=== PATIENT | male | born 1965 | race Caucasian/White ===

== ENCOUNTER → 2018-03-02 08:16 | Outpatient (CLI) | payer OTHER, MEDICAID, SELFPAY ==
--- NOTE | 2018-03-02 | DI.RAD.S_ITS ---
PROCEDURE: XR LUMBAR SPINE 2-3V INDICATIONS: BACK PAIN TECHNIQUE: 2 views of the lumbar spine were acquired. COMPARISON: None. FINDINGS: Bones: 5 [id number] vertebrae are present. There is dextroconvex rotoscoliosis with slight retrolisthesis at L2-3 and L3-4. Multilevel degenerative disc disease with reactive bone marrow signal changes at L2-3 level and moderate anterior and lateral bony spurring. No vertebral body compression fractures. No suspicious bony lesions. Sclerosis over the L5-S1 facet joints. Soft tissues: Overlying bowel gas pattern is normal. No suspicious soft tissue calcifications. IMPRESSION: 1. Rotoscoliosis, multilevel disc degeneration and spondylosis. Dictated by: Berry Zabala M.D. on 03/02/2018 at 8:40 Approved by: Berry Zabala M.D. on 03/02/2018 at 8:43
== END ==
PROVIDERS: Family Provider Family Medicine; PCP Family Medicine; Visit Provider Chiropractor
DX: M51.36 Other intervertebral disc degeneration, lumbar region (principal); M47.816 Spondylosis without myelopathy or radiculopathy, lumbar region; M41.86 Other forms of scoliosis, lumbar region; M54.5 Low back pain
CPT/HCPCS: 72100

== ENCOUNTER → 2018-05-18 13:24 | Outpatient (CLI) | payer OTHER, MEDICAID, SELFPAY ==
[2018-05-18 15:07] LABS: Alanine Aminotransferase 44 IU/L (21-72); Albumin Globulin Ratio 1.6 (1.0-2.8); Alkaline Phosphatase 56 U/L (38-126); Aspartate Aminotransferase 35 IU/L (17-59); BUN Creatinine Ratio 24.3 (6-22); Blood Urea Nitrogen 17 mg/dL (9-20); Calcium 9.7 mg/dL (8.4-10.2); Carbon Dioxide 33 mmol/L (22-32); Chloride 101 mmol/L (98-107); Cholesterol 212 mg/dL (140-199); Estimated Glomerular Filt Rate > 60.0 mL/min (>60); Globulin 3.2 g/dL (1.7-4.1); Glucose 94 mg/dL (70-100); HDL Cholesterol 41 mg/dL (40-60); HEMOLYSIS 16 (0-50); LDL Cholesterol Calculated 138 mg/dL (<100); Potassium 4.4 mmol/L (3.4-5.1); Sodium 146 mmol/L (137-145); Total Protein 8.2 g/dL (6.3-8.2); Triglycerides 166 mg/dL (35-150)
== END ==
PROVIDERS: Family Provider Family Medicine; PCP Family Medicine; Visit Provider Registered Nurse
DX: I10 Essential (primary) hypertension (principal); E78.5 Hyperlipidemia, unspecified
CPT/HCPCS: 36415; 80053; 80061

== ENCOUNTER → 2018-06-13 09:18 | Outpatient (CLI) | payer OTHER, MEDICAID, SELFPAY ==
--- NOTE | 2018-06-13 09:30 | DI.ECHO.S_ITS ---
[facility]---------+ [facility] +---------+ : : [address] : : : : [id number] : : : : Phone: [phone]+ Echocardiogram Report + + :Name: ROGER MAHER Study Date: 06/13/2018 Height: 71 in : :[facility] Exam Location: IS Weight: 260 lb : : Gender: Male BSA: 2.4 m2 : :: 1965 Age: 52 yrs BP: 130/87 mmHg: :Reason For Study: HTN : : Performed By: Neto Azar : :Referring: ROSE BUSH : + + Interpretation Summary The left ventricle is normal in size. There is mild concentric left ventricular hypertrophy. The ejection fraction is estimated to be 60-65%. There are no focal wall motion abnormalities. Diastolic parameters suggest a relaxation abnormality of the left ventricle, consistent with probable normal filling pressures. Both atria are mildly dilated. The right ventricular systolic pressure is estimated to be at least 20 mmHg based on an estimated right atrial pressure of 3 mm Hg. No other echocardiographic abnormalities seen. Procedure: A two-dimensional transthoracic echocardiogram with color flow and Doppler was performed. The study quality was technically adequate. There is no prior echocardiogram noted for this patient. The patient was in normal sinus rhythm during the exam. Left Ventricle: The left ventricle is normal in size. There is mild concentric left ventricular hypertrophy. The ejection fraction is estimated to be 60-65%. There are no focal wall motion abnormalities. Diastolic parameters suggest a relaxation abnormality of the left ventricle, consistent with probable normal filling pressures. Right Ventricle: The right ventricle is normal in size, thickness and function. The right ventricular systolic function is normal. Atria: Both atria are mildly dilated. The interatrial septum is intact with no evidence for an atrial septal defect. Mitral Valve: The mitral valve is normal in structure and function. There is trace mitral regurgitation. Aortic Valve: The aortic valve is normal in structure and function. The aortic valve is trileaflet. The aortic valve opens well. No aortic regurgitation is present. Tricuspid Valve: The tricuspid valve is normal in structure and function. There is trace tricuspid regurgitation. The right ventricular systolic pressure is estimated to be at least 20 mmHg based on an estimated right atrial pressure of 3 mm Hg. Pulmonic Valve: The pulmonic valve is normal in structure and function. There is trace pulmonic regurgitation. Great Vessels: The aortic root is normal size. The ascending aorta is at the upper limits of normal in size. The pulmonary artery is normal size. The IVC is of normal diameter and collapses greater than 50% with a sniff. This suggests a low right atrial pressure of 3 mm Hg. Pericardium/ Pleura There is no pericardial effusion. There is no pleural effusion. MMode/2D Measurements & Calculations LVIDd: 5.2 cm Ao root diam: 3.7 cm LVIDs: 3.5 cm Aortic Jxn: 2.8 cm FS: 33.8 % asc Aorta Diam: 3.5 cm EPSS: 0.45 cm Ao Arch Diam (Prox Trans): 2.8 cm IVSd: 1.4 cm LVPWd: 1.1 cm LV robles. diameter/BSA (cm/m^2): 2.2 LV sys. diameter/BSA (cm/m^2): 1.5 LA dimension: 4.4 cm RA long axis: 5.4 cm LA A2 area: 26.8 cm2 RA area: 22.8 cm2 LA A4 area: 26.5 cm2 RA vol: 82.1 ml LA length (vol): 6.1 cm RA : 34.8 ml/m2 LA vol: 98.9 ml IVC diam: 1.6 cm LA vol index: 41.9 ml/m2 Doppler Measurements & Calculations Ao V2 max: 173.9 cm/sec LVOT Max Shahram: 91.4 cm/sec Ao V2 mean: 132.5 cm/sec LV V1 max P.3 mmHg Ao max P.1 mmHg LV V1 VTI: 16.1 cm Ao mean P.4 mmHg sev ratio: 0.52 Ao V2 VTI: 30.9 cm MV E max shahram: 49.6 cm/sec TR max shahram: 203.2 cm/sec MV A max shahram: 67.5 cm/sec TR max P.5 mmHg MV E/A: 0.74 PA V2 max: 79.3 cm/sec Med Peak E' Shahram: 5.5 cm/sec PA V2 mean: 54.9 cm/sec E/E' med: 9.1 PA mean P.3 mmHg MV dec time: 0.24 sec PA pr(Accel): 29.1 mmHg PA Accel Time: 0.11 sec Pulm A Revs Shahram: 29.0 cm/sec Reading Physician:04:06 PM
[2018-06-13 10:12] LABS: Alanine Aminotransferase 47 IU/L (21-72); Albumin 4.8 g/dL (3.5-5.0); Albumin Globulin Ratio 1.5 (1.0-2.8); Alkaline Phosphatase 55 U/L (38-126); Aspartate Aminotransferase 28 IU/L (17-59); BUN Creatinine Ratio 24.3 (6-22); Bilirubin Total 0.4 mg/dL (0.2-1.3); Blood Urea Nitrogen 17 mg/dL (9-20); Calcium 9.5 mg/dL (8.4-10.2); Carbon Dioxide 29 mmol/L (22-32); Chloride 99 mmol/L (98-107); Estimated Glomerular Filt Rate > 60.0 mL/min (>60); Globulin 3.1 g/dL (1.7-4.1); Glucose 126 mg/dL (70-100); HEMOLYSIS < 15 (0-50); Potassium 4.3 mmol/L (3.4-5.1); Sodium 142 mmol/L (137-145); Total Protein 7.9 g/dL (6.3-8.2)
== END ==
PROVIDERS: Family Provider Family Medicine; PCP Family Medicine; Visit Provider Registered Nurse
DX: I10 Essential (primary) hypertension (principal)
CPT/HCPCS: 36415; 80053; 93306

== ENCOUNTER 2024-03-03 07:57 | Emergency (ER) | payer OTHER, MEDICAID, SELFPAY ==
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
[2024-03-03 08:06] VITALS: BP 255/140; PULSE 109; RESP 19; TEMP 36.4; O2SAT 96; BMI 34.2
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
[2024-03-03] MEDS: LIDOCAINE 1% 20 ML INJ (08:28)
[2024-03-03] MEDS: TET,DIPH,PERTUSS(ACELL),VAC/PF 0.5 ML SYRINGE IM (08:28)
[2024-03-03] MEDS: BACITRACIN OINT 0.9 GM PCKT 1 APPLIC TOP (08:29)
[2024-03-03 09:45] VITALS: BP 245/127; RESP 17
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
== END 2024-03-03 10:01 | disposition home or self-care (01) ==
PROVIDERS: Emergency Provider Emergency Medicine; Family Provider Family Medicine; PCP Nurse Practitioner
DX: S61.215A Laceration without foreign body of left ring finger without damage to nail, initial encounter (principal); W32.0XXA Accidental handgun discharge, initial encounter; Z23 Encounter for immunization
CPT/HCPCS: 12001; 29130; 64450; 73130; 90471; 99284; 90715

== ENCOUNTER → 2024-03-13 09:45 | Outpatient (CLI) | payer OTHER, MEDICAID, SELFPAY ==
[2024-03-13 10:29] LABS: Add Manual Diff / Slide Review NO; Basophils Absolute Auto 0 /uL (0-100); Basophils Percent Auto 0.6 % (0-2); Eosinophils Absolute Auto 100 /uL (0-450); Eosinophils Percent Auto 1.2 % (2-4); Hematocrit 45.3 % (41-53); Hemoglobin 15.9 g/dL (13.5-17.5); Lymphocytes Absolute Auto 1900 /uL (1100-4500); Lymphocytes Percent Auto 28.3 % (25-40); Mean Corpuscular HGB Conc 35.2 % (30-36); Mean Corpuscular Hemoglobin 30.3 PG (26-34); Mean Corpuscular Volume 86.2 fL (80-100); Monocytes Absolute Auto 600 /uL (0-900); Monocytes Percent Auto 8.8 % (3-14); Neutrophils Absolute Auto 4100 /uL (1500-7000); Neutrophils Percent Auto 61.1 % (50-75); Platelet Count 194 X10^3/uL (150-400); Red Blood Cell Count 5.25 X10^6/uL (4.5-5.9); Red Cell Distribution Width 14.1 % (11.6-14.8); White Blood Cell Count 6.8 X10^3/uL (4.5-11.0)
[2024-03-13 10:47] LABS: Alanine Aminotransferase 46 IU/L (<50); Albumin 4.6 g/dL (3.5-5.0); Albumin Globulin Ratio 1.2 (1.0-2.8); Alkaline Phosphatase 55 U/L (38-126); Aspartate Aminotransferase 35 IU/L (17-59); BUN Creatinine Ratio 23.5 (6-22); Bilirubin Total 0.8 mg/dL (0.2-1.3); Blood Urea Nitrogen 19 mg/dL (9-20); Calcium 9.6 mg/dL (8.4-10.2); Carbon Dioxide 24 mmol/L (22-32); Chloride 106 mmol/L (98-107); Cholesterol 276 mg/dL (140-199); Estimated Glomerular Filt Rate > 60 mL/min (>60); Globulin 3.8 g/dL (1.7-4.1); Glucose 115 mg/dL (80-110); HDL Cholesterol 50 mg/dL (40-60); HEMOLYSIS < 15 (0-50); LDL Cholesterol Calculated 195 mg/dL (<100); Potassium 4.1 mmol/L (3.4-5.1); Sodium 140 mmol/L (137-145); Total Protein 8.4 g/dL (6.3-8.2); Triglycerides 156 mg/dL (35-150)
[2024-03-13 12:54] LABS: Hemoglobin A1C% w Est Avg Glu 5.3 % (4.0-6.0)
== END ==
LOC: LAB 09:46
PROVIDERS: Family Provider Family Medicine; PCP Family Medicine; Referring Provider Family Medicine; Visit Provider Family Medicine
DX: I10 Essential (primary) hypertension (principal); E78.5 Hyperlipidemia, unspecified; E66.9 Obesity, unspecified
CPT/HCPCS: 36415; 80053; 80061; 83036; 85025

== ENCOUNTER → 2024-05-01 11:25 | Outpatient (CLI) | payer OTHER, MEDICAID, SELFPAY ==
[2024-05-01 12:29] LABS: BUN Creatinine Ratio 21.1 (6-22); Blood Urea Nitrogen 20 mg/dL (9-20); Calcium 9.7 mg/dL (8.4-10.2); Carbon Dioxide 31 mmol/L (22-32); Chloride 100 mmol/L (98-107); Estimated Glomerular Filt Rate > 60 mL/min (>60); Glucose 113 mg/dL (80-110); HEMOLYSIS < 15 (0-50); Potassium 4.7 mmol/L (3.4-5.1); Sodium 139 mmol/L (137-145)
== END ==
LOC: LAB 11:25
PROVIDERS: Family Provider Family Medicine; PCP Family Medicine; Referring Provider Family Medicine; Visit Provider Family Medicine
DX: I10 Essential (primary) hypertension (principal); E78.5 Hyperlipidemia, unspecified
CPT/HCPCS: 36415; 80048

== ENCOUNTER → 2024-08-17 11:29 | Outpatient (CLI) | payer OTHER, SELFPAY ==
--- NOTE | 2024-08-17 11:31 | DI.RAD.S_ITS ---
PROCEDURE: XR SHOULDER LT MIN 2V INDICATIONS: chronic left shoulder pain/decreased ROM TECHNIQUE: 3 views of the shoulder were acquired. COMPARISON: None. FINDINGS: Bones: No fractures or dislocations. No suspicious bony lesions. Visualized ribs appear intact. Glenohumeral and acromioclavicular joint space narrowing with associated osteophytosis. Bony remodeling of the glenohumeral joint space. Soft tissues: No suspicious soft tissue calcifications. Suspected dystrophic calcifications versus joint loose bodies. IMPRESSION: Severe glenohumeral osteoarthritis. Suspected dystrophic calcifications versus 1.5 cm joint loose bodies. Dictated by: Jj Ovalle M.D. on 08/17/2024 at 14:31 Approved by: Jj Ovalle M.D. on 08/17/2024 at 14:32
--- NOTE | 2024-08-17 11:31 | DI.ECHO.S_ITS ---
[facility]---------+ [facility] : : [address] : : [address] [address] : : [id number] : : Phone: [phone] Echocardiogram Report + + :Name: ROGER MAHER Study Date: 08/17/2024 Height: 71 in : :[facility] ReadingLocation: Weight: 255 lb : : Gender: Male BSA: 2.3 m2 : :: 1965 Age: 59 yrs BP: 193/113 mmHg: :Reason For Study: HYPERTENSION : :Ordering Physician: DIPTI, : :TANMAY Performed By: Bry Rangel : :Referring: TANMAY RESENDEZ : + + Interpretation Summary The left ventricle is normal in size. Left ventricular systolic function appears normal without focal wall motion abnormalities. The ejection fraction is estimated to be 60-65%. Diastolic parameters suggest a relaxation abnormality of the left ventricle, consistent with probable normal filling pressures. The right ventricle is borderline dilated. The right ventricular systolic function is normal. Pulmonary artery pressures cannot be estimated because of the lack of a measurable TR jet velocity but the IVC suggests a CVP of around 3 mmHg. The left atrial size is normal. There is no Doppler evidence for an interatrial shunt. The thickening of interatrial septum suggests lipomatous hypertrophy. There is no significant valvular heart disease. The aortic root is mildly dilated. Procedure: A two-dimensional transthoracic echocardiogram with color flow and Doppler was performed. The study quality was technically good. Comparison is made with the echocardiogram of 06/13/2018. The patient was in normal sinus rhythm during the exam. Left Ventricle: The left ventricle is normal in size. Left ventricular wall thickness is mildly increased. There is no ventricular septal defect visualized. Left ventricular systolic function appears normal without focal wall motion abnormalities. The ejection fraction is estimated to be 60-65%. Diastolic parameters suggest a relaxation abnormality of the left ventricle, consistent with probable normal filling pressures. Right Ventricle: The right ventricle is borderline dilated. The right ventricular systolic function is normal. Atria: The left atrial size is normal. Right atrial size is normal. There is no Doppler evidence for an interatrial shunt. The thickening of interatrial septum suggests lipomatous hypertrophy. Mitral Valve: The mitral valve leaflets appear normal. There is no evidence of stenosis, fluttering, or prolapse. There is no mitral regurgitation noted. Aortic Valve: The aortic valve is trileaflet. The aortic valve is mildly calcified. No aortic regurgitation is present. Tricuspid Valve: The tricuspid valve leaflets are thin and pliable. No tricuspid regurgitation. Pulmonary artery pressures cannot be estimated because of the lack of a measurable TR jet velocity but the IVC suggests a CVP of around 3 mmHg. Pulmonic Valve: The pulmonic valve leaflets are thin and pliable; valve motion is normal. There is no pulmonic valvular regurgitation. There is no significant valvular heart disease. Great Vessels: The aortic root is mildly dilated. The dimensions of the ascending aorta are normal. The pulmonary artery is normal size. The IVC is of normal diameter and collapses greater than 50% with a sniff. This suggests a low right atrial pressure of 3 mm Hg. Pericardium/ Pleura There is no pericardial effusion. There is no pleural effusion. MMode/2D Measurements & Calculations LVIDd: 5.1 cm LVOT diam: 2.0 cm LVIDs: 3.0 cm Ao root diam: 3.7 cm FS: 41.5 % asc Aorta Diam: 3.6 cm EPSS: 0.49 cm IVSd: 1.2 cm LVPWd: 1.2 cm LV robles. diameter/BSA (cm/m^2): 2.2 LV sys. diameter/BSA (cm/m^2): 1.3 LA A2 area: 17.7 cm2 RA long axis: 5.0 cm LA A4 area: 26.6 cm2 RA area: 13.8 cm2 LA length (vol): 6.5 cm RA vol: 32.7 ml LA vol: 61.8 ml RA : 14.0 ml/m2 LA vol index: 26.4 ml/m2 IVC diam: 1.4 cm RVD1 (basal): 4.1 cm RVD2 (mid): 3.7 cm TAPSE: 2.7 cm Doppler Measurements & Calculations Ao V2 max: 181.5 cm/sec LVOT Max Shahram: 103.8 cm/sec Ao V2 mean: 130.9 cm/sec LV V1 max P.3 mmHg Ao max P.2 mmHg LV V1 VTI: 21.1 cm Ao mean P.5 mmHg GABBIE(I,D): 2.1 cm2 Ao V2 VTI: 32.4 cm GABBIE(V,D): 1.9 cm2 sev ratio: 0.65 GABBIE indexed to BSA (cm^2/m^2): 0.91 MV E max shahram: 61.5 cm/sec PA V2 max: 88.5 cm/sec MV A max shahram: 88.4 cm/sec PA V2 mean: 65.6 cm/sec MV E/A: 0.70 PA mean P.8 mmHg Med Peak E' Shahram: 11.5 cm/sec PA pr(Accel): 44.7 mmHg E/E' med: 5.4 Lat Peak E' Shahram: 5.7 cm/sec E/E' lat: 10.9 E/e' average: 8.1 MV dec time: 0.10 sec SV(LVOT): 68.7 ml Reading Physician:05:41 PM
== END ==
PROVIDERS: Family Provider Family Medicine; PCP Family Medicine; Referring Provider Family Medicine; Visit Provider Family Medicine
DX: I10 Essential (primary) hypertension (principal); E78.5 Hyperlipidemia, unspecified; E66.9 Obesity, unspecified; Z68.38 Body mass index [BMI] 38.0-38.9, adult; G47.30 Sleep apnea, unspecified; M25.512 Pain in left shoulder; G89.29 Other chronic pain; M19.012 Primary osteoarthritis, left shoulder; I51.7 Cardiomegaly
CPT/HCPCS: 73030; 93306

== ENCOUNTER 2025-03-28 07:54 | Emergency (ER) | payer OTHER, SELFPAY ==
[2025-03-28] VITALS (51 sets, daily range): BP systolic 152–224; BP diastolic 83–163; PULSE 64–141; RESP 12–28; TEMP 36.5–37.2; O2SAT 92–99; BMI 33.5
--- NOTE | 2025-03-28 08:26 | ED.LOWEXIN ---
HPI - Extremity Injury (Lower) General Chief Complaint: Extremity Injury, Lower Stated Complaint: Right hamstring injury yesterday, pain Time Seen by Provider: 03/28/25 07:58 History of Present Illness HPI Narrative: PMHx significant for HTN, obeisty, hyperlipidemia, LINK Pt presents to the ER with severe R posterior thigh pain that started yesterday afternoon while lifting a heavy object onto a shelf. The patient reports feeling pain immediately after the action but was able to tolerate it initially. However, at around 3 AM, the pain intensified significantly, causing difficulty in straightening the leg. The pain is described as extending from the middle of the buttock down the leg, primarily localized to the back of the thigh. The patient denies any popping sensation during the incident but mentions the affected area feels rock hard. The patient denies any pain radiating to the toes, back pain, groin pain, chest pain, abdominal pain, nausea, vomiting, or pain during urination. He reports experiencing profuse sweating this morning, which he attributes to the severe pain. The patient has no history of chronic pain and does not take regular pain medication. Regarding past medical history, the patient mentions having high blood pressure about nine months ago. He was previously prescribed blood pressure medication but is not currently taking it. Instead, he has been using natural remedies like beetroot powder to manage his blood pressure. Has been off antihypertensives for at least 5 months now. The patient denies alcohol consumption but admits to occasional use of edibles. He reports an allergy to codeine, which makes him sick. Fentanyl was administered by EMS for pain relief but was ineffective. Related Data Previous Rx's ?Medication ?Instructions ?Recorded hydrochlorothiazide 50 mg tablet 50 mg PO DAILY #90 tabs 04/02/24 albuterol sulfate 90 mcg/actuation 2 puff inhalation Q6H PRN 12/31/24 aerosol inhaler shortness of breath #8.5 grams carvedilol 3.125 mg tablet (Coreg) 3.125 mg PO BID #60 tabs 03/28/25 cyclobenzaprine 10 mg tablet 10 mg PO TID PRN muscle spasm #15 03/28/25 tabs hydrocodone 5 mg-acetaminophen 300 1 tab PO BID PRN pain #10 tabs 03/28/25 mg tablet lisinopril 40 mg tablet 40 mg PO DAILY #30 tabs 03/28/25 Allergies Allergy/AdvReac Type Severity Reaction Status Date / Time aspirin (ASPIRIN) Allergy Unknown Verified 08/23/24 10:46 codeine (CODEINE) Allergy Unknown NAUSEA/KOMAL Verified 08/23/24 10:46 ISE atorvastatin AdvReac Mild didn't Verified 08/23/24 10:46 feel well Review of Systems Review of Systems Narrative: As noted above Patient History Medical History (Updated 03/28/25 @ 16:09 by Noe Pereira MD) Sleep apnea Obesity Hyperlipidemia Hypertension Surgical History History of surgery on arm Status post hernia repair Status post hernia repair History of knee replacement History of knee replacement (2006) tobacco type: smokeless tobacco alcohol intake frequency: a few times a month Exam Narrative Exam Narrative: VS as noted above Focused physical exam as follows: General: Well developed, well nourished, no acute distress, obese, pain with any movement of his RLE HEENT: pink palpebral conjunctiva, anicteric sclera, LILLIAM, moist mucous membranes, no JVD, no cervical lymphadenopathy Lungs: no respiratory distress, clear to auscultation without wheezes or crackles; equal breath sounds Heart: normal rate, regular rhythm, no appreciable murmurs Abdomen: soft, nontender, no rebound or rigidity; no palpable mass Musculoskeletal: no gross deformities, no pedal edema; RLE - no tenderness in the inguinal region, medial thigh, popliteal fossa, good dorsalis pedis pulse; rather hard and tender over the posterior thigh with excruciating pain with any movement; mild tenderness in the R gluteal region; no tenderness over the C, T or Lspine Skin: pink, warm; no rashes Neuro: ?AAOx3, GCS 15, nonfocal exam Psyche: no SI/HI, normal affect Initial Vital Signs Initial Vital Signs: Vital Signs Pulse Rate 75 03/28/25 07:59 Blood Pressure 180/97 H 03/28/25 07:59 Pulse Oximetry 98 03/28/25 07:59 Course Orders Ordered: Discontinued Medications Hydralazine HCl (Hydralazine 20 Mg/Ml Vial) 10 mg IV NOW ONE Stop: 03/28/25 10:42 Last Admin: 03/28/25 10:47 Dose: 10 mg Documented By: RB Hydromorphone HCl (Hydromorphone Hcl 0.5 Mg/0.5 Ml Syringe) 1 mg IV NOW ONE Stop: 03/28/25 08:34 Last Admin: 03/28/25 08:58 Dose: 1 mg Documented By: SHOLA Hydromorphone HCl (Hydromorphone Hcl 0.5 Mg/0.5 Ml Syringe) 0.5 mg IV NOW ONE Stop: 03/28/25 10:42 Last Admin: 03/28/25 10:46 Dose: 0.5 mg Documented By: SHOLA Vital Signs Vital signs: Vital Signs - 8 hr 03/28/25 08:00 03/28/25 08:02 03/28/25 08:02 Temperature Pulse Rate 74 68 Respiratory Rate Blood Pressure 180/92 H Pulse Oximetry 97 96 Oxygen Delivery Method 03/28/25 08:05 03/28/25 08:30 03/28/25 08:31 Temperature 97.7 F Pulse Rate 75 75 69 Respiratory Rate 16 Blood Pressure 180/97 H Pulse Oximetry 99 97 97 Oxygen Delivery Method Room Air 03/28/25 08:31 03/28/25 08:54 03/28/25 08:54 Temperature Pulse Rate 64 Respiratory Rate Blood Pressure 210/98 H 219/105 H Pulse Oximetry 98 Oxygen Delivery Method 03/28/25 08:59 03/28/25 09:01 03/28/25 09:33 Temperature Pulse Rate 82 64 Respiratory Rate Blood Pressure 224/112 H Pulse Oximetry 97 98 Oxygen Delivery Method 03/28/25 09:34 03/28/25 09:34 03/28/25 10:00 Temperature Pulse Rate 64 72 Respiratory Rate Blood Pressure 201/98 H Pulse Oximetry 97 96 Oxygen Delivery Method 03/28/25 10:00 03/28/25 10:04 03/28/25 10:04 Temperature Pulse Rate 84 Respiratory Rate Blood Pressure 190/148 H 208/102 H Pulse Oximetry 98 Oxygen Delivery Method 03/28/25 10:30 03/28/25 10:30 03/28/25 10:47 Temperature Pulse Rate 79 89 Respiratory Rate Blood Pressure 214/163 H 214/163 H Pulse Oximetry 95 Oxygen Delivery Method 03/28/25 11:06 03/28/25 11:07 03/28/25 11:07 Temperature Pulse Rate 90 Respiratory Rate Blood Pressure 191/94 H Pulse Oximetry 96 95 Oxygen Delivery Method 03/28/25 11:10 03/28/25 11:10 03/28/25 11:20 Temperature Pulse Rate 92 H 70 Respiratory Rate Blood Pressure 185/92 H Pulse Oximetry 96 95 Oxygen Delivery Method 03/28/25 11:20 03/28/25 11:30 03/28/25 11:30 Temperature Pulse Rate 90 Respiratory Rate Blood Pressure 160/95 H 165/96 H Pulse Oximetry 96 Oxygen Delivery Method 03/28/25 11:40 03/28/25 11:40 03/28/25 11:51 Temperature Pulse Rate 94 H 105 H Respiratory Rate Blood Pressure 158/85 H Pulse Oximetry 96 96 Oxygen Delivery Method 03/28/25 11:51 03/28/25 12:00 03/28/25 12:00 Temperature Pulse Rate 95 H Respiratory Rate Blood Pressure 157/83 H 166/104 H Pulse Oximetry 97 Oxygen Delivery Method 03/28/25 12:10 03/28/25 12:10 03/28/25 12:20 Temperature Pulse Rate 92 H 98 H Respiratory Rate Blood Pressure 167/87 H Pulse Oximetry 96 95 Oxygen Delivery Method 03/28/25 12:20 03/28/25 12:30 03/28/25 12:30 Temperature Pulse Rate 101 H Respiratory Rate Blood Pressure 169/92 H 169/101 H Pulse Oximetry 97 Oxygen Delivery Method 03/28/25 12:40 03/28/25 12:40 03/28/25 12:50 Temperature Pulse Rate 110 H Respiratory Rate Blood Pressure 183/103 H 174/112 H Pulse Oximetry 95 Oxygen Delivery Method 03/28/25 12:50 03/28/25 13:00 03/28/25 13:00 Temperature Pulse Rate 122 H 113 H Respiratory Rate Blood Pressure 191/125 H Pulse Oximetry 96 95 Oxygen Delivery Method 03/28/25 13:08 03/28/25 13:10 03/28/25 13:10 Temperature Pulse Rate 113 H 108 H Respiratory Rate 18 18 Blood Pressure 191/125 H 182/115 H Pulse Oximetry 94 Oxygen Delivery Method 03/28/25 13:20 03/28/25 13:20 03/28/25 13:30 Temperature Pulse Rate 105 H 116 H Respiratory Rate 12 21 Blood Pressure 189/112 H Pulse Oximetry 94 96 Oxygen Delivery Method 03/28/25 13:30 03/28/25 13:40 03/28/25 13:40 Temperature Pulse Rate 121 H Respiratory Rate 18 Blood Pressure 208/117 H 195/114 H Pulse Oximetry 95 Oxygen Delivery Method 03/28/25 13:50 03/28/25 13:50 03/28/25 14:00 Temperature Pulse Rate 130 H 141 H Respiratory Rate 27 H 28 H Blood Pressure 210/121 H Pulse Oximetry 95 92 Oxygen Delivery Method 03/28/25 14:00 03/28/25 15:12 Temperature Pulse Rate 112 H Respiratory Rate Blood Pressure 213/129 H 179/98 H Pulse Oximetry Oxygen Delivery Method MDM - Extremity Injury (Lower) Lab Data 03/28/25 09:07 03/28/25 09:07 Labs: Lab Results 03/28/25 03/28/25 03/28/25 Range/Units 09:07 14:01 14:26 WBC 10.4 (4.5-11.0) X10^3/uL RBC 4.82 (4.5-5.9) X10^6/uL Hgb 14.1 (13.5-17.5) g/dL Hct 40.6 L (41-53) % MCV 84.2 (80-100) fL MCH 29.1 (26-34) PG MCHC 34.6 (30-36) % RDW 14.5 (11.6-14.8) % Plt Count 185 (150-400) X10^3/uL Neut % (Auto) 83.2 H (50-75) % Lymph % (Auto) 10.1 L (25-40) % [place] % (Auto) 6.3 (3-14) % Eos % (Auto) 0.3 L (2-4) % Baso % (Auto) 0.1 (0-2) % Neut # (Auto) 8600 H (4121-4576) /uL Lymph # (Auto) 1000 L (9352-6807) /uL [place] # (Auto) 700 (0-900) /uL Eos # (Auto) 0 (0-450) /uL Baso # (Auto) 0 (0-100) /uL PT 11.0 (9.4-12.5) SECONDS INR 1.0 (0.9-1.3) APTT 27 (25.1-36.5) SECONDS D-Dimer 605 H (<500) ng/ml Sodium 139 (137-145) mmol/L Potassium 3.8 (3.4-5.1) mmol/L Chloride 105 (98-107) mmol/L Carbon Dioxide 24 (22-32) mmol/L BUN 16 (9-20) mg/dL Creatinine 0.76 (0.66-1.25) mg/dL Estimated GFR > 60 (>60) mL/min BUN/Creatinine Ratio 21.1 (6-22) Glucose 151 H (70-99) mg/dL Calcium 9.2 (8.4-10.2) mg/dL Total Bilirubin 0.8 (0.2-1.3) mg/dL AST 43 (17-59) IU/L ALT 74 H (<50) IU/L Alkaline Phosphatase 64 (38-126) U/L Total Creatine Kinase 76 (55-170) U/L Troponin I < 0.012 (0.01-0.034) ng/mL NT-Pro-B Natriuret Pep 247 H (<125) pg/mL Total Protein 7.5 (6.3-8.2) g/dL Albumin 4.3 (3.5-5.0) g/dL Globulin 3.2 (1.7-4.1) g/dL Albumin/Globulin Ratio 1.3 (1.0-2.8) TSH (0.47-4.68) uIU/mL U Opiates 300ng/mL cut Negative (Negative) Ur Oxycodone Screen Negative (Negative) Urine Methadone Screen Negative (Negative) Ur Barbiturates Screen Negative (Negative) U Tricyclic Antidepress Negative (Negative) Ur Phencyclidine Scrn Negative (Negative) Ur Amphetamines Screen Negative (Negative) U Methamphetamines Scrn Negative (Negative) Ur MDMA Scrn (Ecstasy) Negative (Negative) U Benzodiazepines Scrn Negative (Negative) Urine Cocaine Screen Negative (Negative) U Marijuana (THC) Screen Positive H (Negative) Urine pH Normal (Normal) Urine Specific [place] Normal (Normal) Ur Creatinine Normal (Normal) 03/28/25 Range/Units 16:25 WBC (4.5-11.0) X10^3/uL RBC (4.5-5.9) X10^6/uL Hgb (13.5-17.5) g/dL Hct (41-53) % MCV (80-100) fL MCH (26-34) PG MCHC (30-36) % RDW (11.6-14.8) % Plt Count (150-400) X10^3/uL Neut % (Auto) (50-75) % Lymph % (Auto) (25-40) % [place] % (Auto) (3-14) % Eos % (Auto) (2-4) % Baso % (Auto) (0-2) % Neut # (Auto) (5920-2026) /uL Lymph # (Auto) (9697-3930) /uL [place] # (Auto) (0-900) /uL Eos # (Auto) (0-450) /uL Baso # (Auto) (0-100) /uL PT (9.4-12.5) SECONDS INR (0.9-1.3) APTT (25.1-36.5) SECONDS D-Dimer (<500) ng/ml Sodium (137-145) mmol/L Potassium (3.4-5.1) mmol/L Chloride (98-107) mmol/L Carbon Dioxide (22-32) mmol/L BUN (9-20) mg/dL Creatinine (0.66-1.25) mg/dL Estimated GFR (>60) mL/min BUN/Creatinine Ratio (6-22) Glucose (70-99) mg/dL Calcium (8.4-10.2) mg/dL Total Bilirubin (0.2-1.3) mg/dL AST (17-59) IU/L ALT (<50) IU/L Alkaline Phosphatase (38-126) U/L Total Creatine Kinase (55-170) U/L Troponin I (0.01-0.034) ng/mL NT-Pro-B Natriuret Pep (<125) pg/mL Total Protein (6.3-8.2) g/dL Albumin (3.5-5.0) g/dL Globulin (1.7-4.1) g/dL Albumin/Globulin Ratio (1.0-2.8) TSH 0.832 (0.47-4.68) uIU/mL U Opiates 300ng/mL cut (Negative) Ur Oxycodone Screen (Negative) Urine Methadone Screen (Negative) Ur Barbiturates Screen (Negative) U Tricyclic Antidepress (Negative) Ur Phencyclidine Scrn (Negative) Ur Amphetamines Screen (Negative) U Methamphetamines Scrn (Negative) Ur MDMA Scrn (Ecstasy) (Negative) U Benzodiazepines Scrn (Negative) Urine Cocaine Screen (Negative) U Marijuana (THC) Screen (Negative) Urine pH (Normal) Urine Specific [place] (Normal) Ur Creatinine (Normal) MDM Narrative Medical decision making narrative: HPI, PMHx, PSHx, Medication list, Allergies, ROS and Focused exam were reviewed above. ?Differential diagnosis as noted below. ?Social determinants affecting care considered. ?All of these were taken into consideration warranting above listed work up. ?Consultations as deemed necessary were documented below (if listed). Labs (if ordered and noted) were independently reviewed by me. Imaging studies (if ordered and noted) were independently reviewed by me EKG (if noted) was independently reviewed by me External documents (if reviewed) are documented above Initial VS noted above. ? Differential diagnosis considered include (but not limited to) the following: muscle strain/sprain, lumbar strain/sprain, lumbar radiculopathy/sciatica, foraminal or spinalk stenosis, cauda equina syndrome, thigh hematoma, DVT, AAA/dissection, hip fracture/dislocation, uncontrolled HTN vs. HTN due to pain Pt interviewed and examined. Pt quite uncomfortable with any movement of his RLE. BP is markedly elevated. Work up initiated. 0850 - Bedside EKG showed NSR @ 74; no STTW changes; QTc 457 Dilaudid ordered for pain. R hip xray unremarkable for any bony abnormalities. D-dimer is mildly elevated raising concerns for AAA/dissection BP markedly elevated - Hydralazine IV ordered. CT aorta with run off negative including in the LLE. Venous doppler US ordered to rule out DVT - negative but US tech reported active fasciculations of the thigh muscles during US. Pt noted to be to markedly tachycardic. 1400 - sinus tach @ 122; APCs noted; QTc 470 No complaints of chest pain, cough, shortness of breath. Troponin and BNP is negative. UDS negative other than cannabis. Discussed plan of care - will treat with pain meds, muscle relaxants and follow up with his PCP regarding his hypertension and tachycardia. I gave him 1 month supply of his Lisinopril and Coreg in the meantime as he is out. Discharge Plan Departure Patient Disposition: Home Clinical Impression: Acute pain of right thigh, Benign essential hypertension, Tachycardia Activity Restrictions/Additional Instructions: Work up today regarding your R thigh pain was generally reassuring. Take Ibuprofen for mild pain and [place] for severe pain. Use Flexeril and heating pad to help with muscle spasms. Restart your blood pressure medications and see your doctor to reassess your heart rate and blood pressure. Return to the ER if with worsening symptoms. Prescriptions: New hydrocodone-acetaminophen 5-300 mg tablet 1 tab PO BID PRN (Reason: pain) Qty: 10 0RF cyclobenzaprine 10 mg tablet 10 mg PO TID PRN (Reason: muscle spasm) Qty: 15 0RF lisinopril 40 mg tablet 40 mg PO DAILY Qty: 30 0RF carvedilol [Coreg] 3.125 mg tablet 3.125 mg PO BID Qty: 60 0RF Rx Instructions: must administer with a meal/food Discontinued lisinopril 40 mg tablet 40 mg PO DAILY Qty: 60 3RF carvedilol 3.125 mg tablet 3.125 mg PO BID Qty: 60 3RF Rx Instructions: must administer with a meal/food No Action albuterol sulfate 90 mcg/actuation HFA aerosol inhaler 2 puff INHALATION Q6H PRN (Reason: shortness of breath) Qty: 8.5 1RF hydrochlorothiazide 50 mg tablet 50 mg PO DAILY Qty: 90 3RF Referrals: Татьяна Guevara DO [Primary Care Provider, Family Practice] Stand Alone Forms: Patient Portal/API
--- NOTE | 2025-03-28 08:33 | EKG_ITS ---
[address] [address] Test Date: 2025-03-28 Pat Name: Hector Mark Department: [facility] Room: Gender: Male Case Technician: SUKHJINDER : 1965 Requested By: Order Number: [id number] Reading MD: Azael Clay Measurements Intervals [place] Rate: 74 P: 13 [place]: 184 QRS: 27 QRSD: 96 T: 51 QT: 412 QTc: 457 Interpretive Statements Sinus rhythm with premature atrial complexes Electronically Signed On 04-01-2025 16:20:09 PDT by Azael Clay
--- NOTE | 2025-03-28 08:33 | DI.RAD.S_ITS ---
PROCEDURE: XR HIP W PEL IF DONE RT 2V INDICATIONS: pain TECHNIQUE: 2 views of the hip were acquired. COMPARISON: None. FINDINGS: Bones: No fractures or dislocations. No suspicious bony lesions. The visualized pelvic ring appears intact. Soft tissues: No suspicious soft tissue calcifications or masses. IMPRESSION: No acute bony abnormality. Dictated by: Jj Ovalle M.D. on 03/28/2025 at 9:44 Approved by: Jj Ovalle M.D. on 03/28/2025 at 9:44
[2025-03-28 09:18] LABS: Add Manual Diff / Slide Review NO; Hematocrit 40.6 % (41-53); Hemoglobin 14.1 g/dL (13.5-17.5); Lymphocytes Absolute Auto 1000 /uL (1100-4500); Mean Corpuscular HGB Conc 34.6 % (30-36); Mean Corpuscular Hemoglobin 29.1 PG (26-34); Mean Corpuscular Volume 84.2 fL (80-100); Platelet Count 185 X10^3/uL (150-400)
[2025-03-28 09:27] LABS: Alanine Aminotransferase 74 IU/L (<50); Albumin 4.3 g/dL (3.5-5.0); Albumin Globulin Ratio 1.3 (1.0-2.8); Alkaline Phosphatase 64 U/L (38-126); Blood Urea Nitrogen 16 mg/dL (9-20); Calcium 9.2 mg/dL (8.4-10.2); Carbon Dioxide 24 mmol/L (22-32); Chloride 105 mmol/L (98-107); Estimated Glomerular Filt Rate > 60 mL/min (>60); Globulin 3.2 g/dL (1.7-4.1); Glucose 151 mg/dL (70-99); HEMOLYSIS < 15 (0-50); Potassium 3.8 mmol/L (3.4-5.1); Sodium 139 mmol/L (137-145); Total Protein 7.5 g/dL (6.3-8.2)
[2025-03-28 09:30] LABS: INR 1.0 (0.9-1.3); Prothrombin Time 11.0 SECONDS (9.4-12.5)
[2025-03-28 09:32] LABS: PTT Partial Thromboplastin Tim 27 SECONDS (25.1-36.5)
--- NOTE | 2025-03-28 10:18 | DI.CT.S_ITS ---
PROCEDURE: CT ANGIO ABD AORTA RUNOFF INDICATIONS: uncontrolled HTN; R thigh pain TECHNIQUE: After the administration of intravenous contrast, 2.5 mm sections acquired from T12 to the feet, with optional delayed image acquisition from the knees to the feet. 3-dimensional maximum intensity projection (MIP) coronal and sagittal reformats, and/or 3-dimensional volume rendering reformatting was then performed. For radiation dose reduction, the following was used: automated exposure control. COMPARISON: None. FINDINGS: Image Quality: Diagnostic. Abdominal aorta: Widely patent. No areas of hemodynamically significant stenosis, dissection, vascular occlusion or aneurysmal dilation. Mild scattered areas of atherosclerotic calcification. Splanchnic vessels: No areas of hemodynamically significant stenosis, dissection, vascular occlusion or aneurysmal dilation. Mild scattered areas of atherosclerotic calcification. Right lower extremity: No areas of hemodynamically significant stenosis, dissection, vascular occlusion or aneurysmal dilation. Mild scattered areas of atherosclerotic calcification. Three-vessel runoff. Vessels are patent to the level of the foot. Left lower extremity: No areas of hemodynamically significant stenosis, dissection, vascular occlusion or aneurysmal dilation. Mild scattered areas of atherosclerotic calcification. Three-vessel runoff. Vessels are patent to the level of the foot. Lower Chest: No significant findings. ABDOMEN: Liver: No solid mass. Gallbladder: No radiopaque gallstones or wall thickening. Biliary ducts: No biliary dilation. Pancreas: No ductal dilation. Spleen: Size is within normal limits. Adrenal Glands: No adrenal nodules. Kidneys and Ureters: No hydronephrosis. Bilateral renal cysts. Stomach and Bowel: Normal colonic caliber, without significant wall thickening. Minimal diverticula without inflammatory change. Peritoneum: No abnormal intraperitoneal fluid. No free air. Ventral Wall: No hernia. Abdominal Nodes: No retroperitoneal or mesenteric adenopathy by size criteria. Vessels: Aorta and inferior vena cava are normal in size. PELVIS: Pelvic Organs: Unremarkable. Bladder: Unremarkable. Pelvic Nodes: No enlarged lymph nodes. Miscellaneous: Fat containing right inguinal hernia. Bones: No aggressive osseous abnormality. Left knee arthroplasty. IMPRESSION: Aorta is widely patent with three-vessel runoff extending to the level of the foot. Minimal scattered atherosclerotic calcifications without hemodynamically significant stenosis. Diverticulosis. Dictated by: Valerie Love M.D. on 03/28/2025 at 11:53 Approved by: Valerie Love M.D. on 03/28/2025 at 12:04
--- NOTE | 2025-03-28 10:40 | PC.NURSE ---
This RN informed Dr. Ham of patient increased blood pressures. This RN informed provider that patient used to take 3 different medications but self stopped them 4-5 months ago. Provider asked patient current pain score. Patient informed this RN that pain was a 7 in right thigh. Provider states thank you, I will put something in.
[2025-03-28] MEDS: hydrALAZINE 20 MG/ML VIAL 10 MG IV (10:47)
--- NOTE | 2025-03-28 12:49 | DI.US.S_ITS ---
PROCEDURE: US PERIPH VENOUS LOW EXTREM RT INDICATIONS: SWELLING AND PAIN TECHNIQUE: Real-time imaging, as well as color and pulse Doppler interrogation, were performed of the lower extremity deep veins from the inguinal ligament to the popliteal fossa, with documentation of the visualized calf veins. COMPARISON: [facility], CT, CT ANGIO ABD AORTA RUNOFF, 03/28/2025, 10:51. [facility], CR, XR HIP W PEL RT 2V, 03/28/2025, 9:15. FINDINGS: The common femoral, femoral, popliteal, and the visualized calf veins are normally compressible, and free of intraluminal thrombus. Color and pulse Doppler demonstrate normal phasic intraluminal flow. There is normal augmentation response to distal compression maneuver. During the examination, note is made of spontaneous contraction/spasm within the calf musculature. IMPRESSION: No findings of lower extremity deep venous thrombosis. Note: Concordant preliminary findings given by the principal investigator upon the completion of the examination to Dr. Ham at 1:50 p.m. on March 28, 2025. Dictated by: Jimenez Howe M.D. on 03/28/2025 at 12:54 Approved by: Jimenez Howe M.D. on 03/28/2025 at 12:55
--- NOTE | 2025-03-28 13:52 | EKG_ITS ---
[id number] [address] Test Date: 2025-03-28 Pat Name: Hector Mark Department: Room: Gender: Male Molding Associate: GRACE : 1965 Requested By: Order Number: [id number] Reading MD: Azael Clay Measurements Intervals [place] Rate: 122 P: -9 [place]: 168 QRS: 31 QRSD: 88 T: 52 QT: 330 QTc: 470 Interpretive Statements Sinus tachycardia with premature atrial complexes Nonspecific ST abnormality Electronically Signed On 04-01-2025 16:23:48 PDT by Azael Clay
--- NOTE | 2025-03-28 13:57 | DI.RAD.S_ITS ---
PROCEDURE: XR CHEST 1V INDICATIONS: tachycardia TECHNIQUE: One view of the chest was acquired. COMPARISON: None. FINDINGS: Surgical changes and devices: None. Lungs and pleura: Lungs are clear. No pleural effusions or pneumothorax. Mediastinum: Mediastinal contours appear normal. Heart size is normal. Bones and chest wall: No suspicious bony lesions. Overlying soft tissues appear unremarkable. IMPRESSION: No acute cardiopulmonary abnormality is seen. Dictated by: Jj Ovalle M.D. on 03/28/2025 at 14:53 Approved by: Jj Ovalle M.D. on 03/28/2025 at 14:53
[2025-03-28 14:44] LABS: Creatine Kinase 76 U/L (55-170)
[2025-03-28 14:47] LABS: Ur Specific Gravity Normal (Normal)
[2025-03-28 14:48] LABS: UR Morphine/Opiate cutoff 300 Negative (Negative); Urine MDMA Negative (Negative); Urine Methamphetamines Negative (Negative); Urine Tetrahydrocannabinol Positive (Negative); Urine Tricyclic Antidepressant Negative (Negative)
[2025-03-28 14:55] LABS: NT-proBNP (BNP-Adult 18+) 247 pg/mL (<125)
[2025-03-28 14:57] LABS: Troponin I < 0.012 ng/mL (0.01-0.034)
--- NOTE | 2025-03-28 15:26 | PC.NURSE ---
late entry: Pt heart rate and resp rate elevated. Pt states feeling anxiety and having anxiety chronically and not taking any medication for it. Pt results discussed with the provider. Additional labs and imaging ordered along with EKG.
[2025-03-28 17:32] LABS: Thyroid Stimulating Hormone 0.832 uIU/mL (0.47-4.68)
== END 2025-03-28 16:56 | disposition home or self-care (01) ==
PROVIDERS: Emergency Provider Emergency Medicine; Family Provider Family Medicine; PCP Family Medicine
DX: M79.651 Pain in right thigh (principal); I10 Essential (primary) hypertension; R00.0 Tachycardia, unspecified; X50.0XXA Overexertion from strenuous movement or load, initial encounter; F17.290 Nicotine dependence, other tobacco product, uncomplicated
CPT/HCPCS: 36415; 71045; 73502; 75635; 80053; 80305; 82550; 83880; 84443; 84484; 85025; 85379; 85610; 85730; 93005; 93971; 96374; 96375; 96376; 99283; 99284; J0360; J1171; Q9967